=== PATIENT | male | born 1945 | race Caucasian/White ===

== ENCOUNTER → 2020-06-26 | Outpatient (CLI) | payer MEDICARE, BC ==
[~2020-06-26] MED LIST: AMIO100T4 PO; AMLO-211 PO; ATOR-2 PO; CLON0.1T22 PO; POTA1POW11 PO; RIVA20TA PO
== END | disposition home or self-care (01) ==
LOC: CFH 10:04
PROVIDERS: ATTEND Internal Medicine Cardiovascular Disease
DX: I48.0 Paroxysmal atrial fibrillation (principal)
CPT/HCPCS: 71046; 75572; 82565

== ENCOUNTER 2020-06-29 06:09 | Observation (INO) | payer MEDICARE, BC ==
[~2020-06-29] VITALS: Ht 182.9 cm; Wt 99.0 kg
[2020-06-29] MEDS ORDERED: SODIUM CHLORIDE 0.9% 1,000 ML IV SCH (06:30)
[2020-06-29] MEDS ORDERED: SODIUM CHLORIDE 0.9% 1,000 ML IV ONE (06:30)
[2020-06-29] MEDS ORDERED: ALBU90AE2 IH (06:37)
[2020-06-29 07:12] LABS: BASOPHILS % (AUTO) 1 % (0-1); EOSINOPHILS % (AUTO) 7 % (1-7); LYMPHOCYTES % (AUTO) 20 % (22-44); MEAN CORPUSCULAR HEMOGLOBIN 29.3 pg (27.5-34.5); MEAN CORPUSCULAR HGB CONC 33.8 g/dL (33.2-36.2); MEAN PLATELET VOLUME 7.3 fL (7.4-10.4); MONOCYTES % (AUTO) 12 % (2-9); NEUTROPHILS % (AUTO) 60 % (42-75); PLATELET COUNT 311 x10^3/uL (130-400); RED BLOOD COUNT 5.69 x10^6/uL (4.38-5.82); RED CELL DISTRIBUTION WIDTH 15.1 % (9.4-14.8)
[2020-06-29 07:19] LABS: ANION GAP 5 mmol/L (5-15); CALCIUM 8.9 mg/dL (8.5-10.1); CHLORIDE 110 mmol/L (98-107); CREATININE 0.99 mg/dL (0.7-1.3)
[2020-06-29 07:35] LABS: INTERNATIONAL NORMALIZED RATIO 1.09 (0.93-1.1); PROTHROMBIN TIME 11.6 Seconds (9.6-11.5)
[2020-06-29 07:36] LABS: MD NO
[2020-06-29] MEDS ORDERED: FENTANYL PF 250 MCG/5ML ONE (07:40)
[2020-06-29] MEDS ORDERED: LIDOCAINE 1%, 20ML ONE (08:43)
[2020-06-29] MEDS ORDERED: DEXAMETHASONE 4 MG/ML, 1ML ONE ×2 (09:00)
[2020-06-29] MEDS ORDERED: ROCURONIUM 10MG/ML,5ML ONE (09:00)
[2020-06-29] MEDS ORDERED: HEPARIN 1,000 UNITS/ML, 10ML ONE ×2 (09:00)
[2020-06-29] MEDS ORDERED: CEFAZOLIN 1,000 MG ONE ×2 (09:00)
[2020-06-29] MEDS ORDERED: PROPOFOL 10 MG/ML, 20ML ONE (09:00)
[2020-06-29] MEDS ORDERED: NEOSTIGMINE 1 MG/ML, 10ML ONE ×2 (10:20)
[2020-06-29] MEDS ORDERED: GLYCOPYRROLATE 0.2MG/1ML, 5ML ONE (10:20)
[2020-06-29] MEDS ORDERED: MIDAZOLAM 1 MG/ML, 2ML IV PRN (11:00)
[2020-06-29] MEDS ORDERED: PROMETHAZINE 12.5 MG SUPP PR PRN (11:00)
[2020-06-29] MEDS ORDERED: DIAZEPAM 5 MG/ML, 2ML IVPush PRN (11:00)
[2020-06-29] MEDS ORDERED: ACETAMINOPHEN 325 MG TABLET PO PRN ×2 (11:00)
[2020-06-29] MEDS ORDERED: ALBUTEROL SULFATE 2.5 MG/3 ML NPPB PRN (11:00)
[2020-06-29] MEDS ORDERED: DIPHENHYDRAMINE 50 MG/ML, 1ML IVPush PRN ×2 (11:00)
[2020-06-29] MEDS ORDERED: FENTANYL PF 100 MCG/2ML IV PRN (11:00)
[2020-06-29] MEDS ORDERED: RIVAROXABAN 20 MG TABLET PO SCH (11:00)
[2020-06-29] MEDS ORDERED: OXYcodone 5 MG/5 ML ORAL.SOL UDC PO PRN (11:00)
[2020-06-29] MEDS ORDERED: MEPERIDINE/PF 25MG/0.5ML IVPush PRN (11:00)
[2020-06-29] MEDS ORDERED: HYDROmorphone 1 MG/ML, 1ML INJ IVPush PRN (11:00)
[2020-06-29] MEDS ORDERED: EPHEDRINE 50 MG/ML, 1ML IVPush PRN (11:00)
[2020-06-29] MEDS ORDERED: ZOLPIDEM 5MG TABLET PO PRN (11:00)
[2020-06-29] MEDS: RIVAROXABAN 20 MG TABLET PO SCH (11:00)
[2020-06-29] MEDS ORDERED: PROMETHAZINE 25 MG/ML, 1ML IVPush PRN (11:00)
[2020-06-29] MEDS ORDERED: hydrALAzine 20 MG/ML, 1ML IV PRN (11:00)
[2020-06-29] MEDS ORDERED: ONDANSETRON 2MG/ML, 2ML IVPush PRN ×2 (11:00)
[2020-06-29] MEDS ORDERED: LABETALOL 5MG/ML, 20ML IV PRN (11:00)
[2020-06-29 12:50] VITALS: BP 122/68
[2020-06-29 19:42] VITALS: BP 157/75
[2020-06-29] MEDS: COLCHICINE 0.6 MG CAPSULE PO SCH (21:11)
[2020-06-30 01:30] VITALS: BP 116/63
[2020-06-30 08:00] VITALS: BP 134/75
[2020-06-30] MEDS: COLCHICINE 0.6 MG CAPSULE PO SCH (08:50)
[2020-06-30] MEDS: RIVAROXABAN 20 MG TABLET PO SCH (08:51)
[2020-06-30] MEDS ORDERED: AMLODIPINE 10 MG TAB PO SCH (09:00)
[2020-06-30] MEDS ORDERED: AMIO100T4 PO (10:56)
[2020-06-30] MEDS ORDERED: COLC0.6C3 PO (10:57)
== END 2020-06-30 13:01 | disposition home or self-care (01) ==
LOC: CACL 06:09 → ORIP 10:35 → 5SO 12:17 → DCLOUNGE 06-30 12:49
PROVIDERS: ADMIT Internal Medicine Cardiovascular Disease; ATTEND Internal Medicine Cardiovascular Disease
DX: I48.91 Unspecified atrial fibrillation (principal); Z20.822 Contact with and (suspected) exposure to COVID-19; I48.92 Unspecified atrial flutter; I10 Essential (primary) hypertension; Z85.46 Personal history of malignant neoplasm of prostate; Z79.899 Other long term (current) drug therapy
CPT/HCPCS: 36415; 80048; 85025; 85347; 85610; 85730; 93306; 93312; 93321; 93325; 93613; 93655; 93656; 93662; 96360; 96361; C1730; C1732; C1759; C1766; C1893; C1894; G0378; J0690; J1100; J1644; J2704; J2710; J3010; J3490; J7030; U0003; U0005